=== PATIENT | male | born 1965 | race Caucasian/White ===

== ENCOUNTER 2019-11-10 08:10 | Outpatient (CLI) | payer OTHER | END 2019-11-10 23:59 | disposition home or self-care (01) | LOC: CFH 08:10 | PROVIDERS: ATTEND Internal Medicine | DX: Z13.220 Encounter for screening for lipoid disorders (principal); Z12.11 Encounter for screening for malignant neoplasm of colon; R97.20 Elevated prostate specific antigen [PSA]; R80.9 Proteinuria, unspecified | CPT/HCPCS: 76770 ==